=== PATIENT | female | born 1995 | race Caucasian/White ===

== ENCOUNTER 2017-01-07 12:04 | Emergency (ER) | payer BC ==
[~2017-01-07 12:04] MED LIST: ALBU1AER9 INH; BCPILLS PO; BUPR200T2 PO; CITA20TA9 PO
[2017-01-07 12:10] VITALS: TEMP 36.7; Ht 170.2 cm
[2017-01-07 12:24] VITALS: O2SAT 98
[2017-01-07 12:39] LABS: HEMATOCRIT 39.9 % (37-47); MEAN CELL VOLUME 88.5 fL (80-100); MEAN CORPUSCULAR HEMOGLOBIN 29.9 pg (25-34); MEAN CORPUSCULAR HGB CONC 33.8 g/dl (32-36); MEAN PLATELET VOLUME 10.1 fL (7.4-10.4); PLATELET COUNT 188 K/uL (130-400); RED BLOOD COUNT 4.51 M/uL (4.2-5.4); WHITE BLOOD COUNT 6.07 K/uL (4.8-10.8)
--- NOTE | 2017-01-07 12:45 | EMERGENCY ROOM VISIT NOTE ---
History Report prepared by George: Arina Tanner Under the Supervision of: Dr. Cameron Hoffman M.D. First contact with patient: 12:08 History of Present Illness The patient is a 22 year old female who presents to the Emergency Room with complaints of a sudden syncopal episode that occurred just prior to arrival. Per nursing staff, the patient arrives via ALS after [place]. Nursing staff reports that the patient hit her head and there were reports of seizure like activity after the incident. The patient states that she has a history of syncopal episodes and states that she believes today's episode is related to hypotension. She denies drinking any coffee today , but states that she does feel dehydrated. The patient denies any neck pain, shortness of breath, chest pain, back pain, hip pain, or extremity pain. She reports regular menstrual cycles and denies any chance of . Source of History: patient, nursing staff Onset: just prior to arrvial Position: other (global) Quality: other (syncopal episode) Timing: other (sudden) Associated Symptoms: No SOB, No back pain, No chest pain, No neck pain Note: Associated Symptoms: hypotension, dehydrated Review of Systems All systems have been listed, reviewed, and are negative other than those previously mentioned. Please see Additional Medical History Sheet. Past Medical & Surgical Medical Problems: (1) Asthma (2) Bronchitis (3) Pneumonia Surgical Problems: (1) Appendicitis Family History Diabetes mellitus Heart disease Hypertension Social History Smoking Status: Current Some Day Smoker Alcohol Use: none Drug Use: none Marital Status: single Housing Status: lives with family Occupation Status: employed Current/Historical Medications No Active Prescriptions or Reported Meds Allergies Coded Allergies: No Known Allergies (Unverified , 01/07/17) Physical Exam Vital Signs Date Time Temp Pulse Resp B/P Pulse Ox O2 Delivery O2 Flow Rate FiO2 01/07/17 13:48 67 20 101/60 96 01/07/17 12:34 74 13 101/61 98 Room Air 115/63 100/69 01/07/17 12:29 69 01/07/17 12:24 98 Room Air 01/07/17 12:10 36.7 82 16 116/71 96 Room Air Physical Exam GENERAL: Patient awake, alert, oriented x 3. Patient follows commands. Patient does not appear toxic. Patient is adequately hydrated and well- nourished. SKIN: No erythema, pallor, cyanosis or rash HEENT: Slight tenderness over the head, but no hematoma, pupils equal, reactive to light and accommodation, no alex sign or raccoon sign. Ears normal, no hemotympanum. Oral cavity and posterior pharynx appear normal. Neck: Without adenopathy, no neck vein distention.No step offs. Point tenderness over cervical spine. LUNGS: Clear to auscultation. No wheezes, no rales, no rhonchi. HEART: No murmurs. No gallops. No rubs ABDOMEN: No masses, no rebound, no hepatomegaly or splenomegaly. EXTREMITIES: No signs of trauma. No pedal or pretibial edema. No calf or thigh tenderness. NEUROLOGIC: Cranial nerves II-XII within normal limits. No gross motor sensory function deficits. Medical Decision & Procedures ER Provider Diagnostic Interpretation: X ray results are stated below per my interpretation and the radiologist's interpretation. CHEST 2 VIEWS ROUTINE HISTORY: syncope COMPARISON: None. FINDINGS: The lungs are clear. Cardiac silhouette is normal in size. No pleural effusions. No pneumothorax. IMPRESSION: No acute process. Electronically signed by: Jacky Escalante M.D. 01/07/2017 1:00 PM Dictated Date/Time: 01/07/2017 12:59 PM Laboratory Results 01/07/17 12:30 01/07/17 12:30 Test 01/07/17 12:30 Red Blood Count 4.51 M/uL (4.2-5.4) Mean Corpuscular Volume 88.5 fL (80-100) Mean Corpuscular Hemoglobin 29.9 pg (25-34) Mean Corpuscular Hemoglobin Concent 33.8 g/dl (32-36) RDW Standard Deviation 42.2 fL (36.4-46.3) RDW Coefficient of Variation 13.0 % (11.5-14.5) Mean Platelet Volume 10.1 fL (7.4-10.4) Anion Gap 6.0 mmol/L (3-11) Estimated GFR () 123.2 Estimated GFR (Non- 106.3 BUN/Creatinine Ratio 14.9 (10-20) Calcium Level 8.5 mg/dl (8.5-10.1) Troponin I < 0.015 ng/ml (0-0.045) Laboratory results as stated above per my review. ECG Indication: syncope Rate (beats per minute): 72 Rhythm: normal sinus Findings: no acute ischemic change, no ectopy ED Course 1209: Past medical records reviewed. The patient was evaluated in room B11B. A complete history and physical examination was performed. 1322: I reevaluated the patient and she is feeling fine. She had a successful ambulatory trial. I discussed all the exam findings with her and her family and I discussed the treatment plan. They verbalized complete understanding and agreement. The patient is ready to go home. Medical Decision Nurses notes reviewed. Medical history sheet reviewed. Differential diagnosis includes but is not limited to: metabolic disorder, dehydration, vasovagal syncope, arrhythmia, orthostatic hypotension. Multiple labs, EKG and imaging were obtained. Please see above. The patient has no evidence of a metabolic disorder including hypoglycemia. The patient is not orthostatic. She has no evidence of an arrhythmia or an acute cardiac change. She is not anemic. The patient was observed and ultimately discharged.. She was encouraged to drink extra fluids. The patient believes that she may have been dehydrated. Blood pressure Screening: Patient was found to have normal blood pressure on screening and does not require follow up. Medication Reconciliation: I attest that I have personally reviewed the patient' s current medication list. Impression Primary Impression: Syncope Scribe Attestation The scribe's documentation has been prepared under my direction and personally reviewed by me in its entirety. I confirm that the note above accurately reflects all work, treatment, procedures, and medical decision making performed by me. Departure Information Dispostion Home / Self-Care Prescriptions No Active Prescriptions or Reported Meds Referrals Tj Rashid Jr,D.O. (PCP) Forms HOME CARE DOCUMENTATION FORM, IMPORTANT VISIT INFORMATION Patient Instructions Fainting (Syncope) - [facility], [facility] Additional Instructions Drink 3-4 quarts of liquid over the next 24 hours. REST today. You may resume normal activities tomorrow. Return here if you have any further episodes like today.
[2017-01-07 13:00] LABS: BLOOD UREA NITROGEN 12 mg/dl (7-18); BUN/CREATININE RATIO 14.9 (10-20); CALCIUM 8.5 mg/dl (8.5-10.1); CARBON DIOXIDE 27 mmol/L (21-32); CHLORIDE 109 mmol/L (98-107); CREATININE 0.79 mg/dl (0.60-1.20); GLUCOSE 103 mg/dl (70-99); POTASSIUM 3.7 mmol/L (3.5-5.1); SODIUM 142 mmol/L (136-145)
--- NOTE | 2017-01-07 13:02 | DIAGNOSTIC IMAGING REPORT ---
CHEST 2 VIEWS ROUTINE HISTORY: syncope COMPARISON: None. FINDINGS: The lungs are clear. Cardiac silhouette is normal in size. No pleural effusions. No pneumothorax. IMPRESSION: No acute process. Electronically signed by: Jacky Escalante M.D. 01/07/2017 1:00 PM Dictated Date/Time: 01/07/2017 12:59 PM
[2017-01-07 13:48] VITALS: BP 101/60; PULSE 67; O2SAT 96
== END 2017-01-07 13:49 | disposition home or self-care (01) ==
LOC: EDBD 12:04 → C.EDB 12:05
DX: R55 Syncope and collapse (principal); J45.909 Unspecified asthma, uncomplicated; Z87.01 Personal history of pneumonia (recurrent); Z83.3 Family history of diabetes mellitus; Z82.49 Family history of ischemic heart disease and other diseases of the circulatory system; F17.210 Nicotine dependence, cigarettes, uncomplicated